=== PATIENT | female | born 1975 | race Caucasian/White ===

== ENCOUNTER 2018-01-27 07:32 | Day surgery (SDC) | payer OTHER, SELFPAY ==
--- NOTE | 2018-01-27 | GASB_PTH ---
PATIENT: AMRITA PEREA LOC: EN U#:[id number] AGE/SX: 42/F ROOM: RE01/27/[address]: Dr. Phillip Joseph MD : 1975 BED: DIS: 01/27/2018 SPEC #: [id number] RECD: 01/27/18 11:06 STATUS: DRARYN CHANEL #: [id number] GAYLA: 01/27/18 00:[address]: Phillip Joseph DEPT: SURGICAL PATHOLOGY RECD BY: Terell Worthington ENTERED: 01/27/18 11:06 SP TYPE: Gastric Bx OTHR DR: Dr. Hermilo Lu DO Tissues: A - Gastric mucous membrane B - Esophageal mucous membrane Procedures: Special Stain Group II Surgery Specimen Level IV Alcian Blue/PAS (control) HEADER OPERATION: EGD ([facility] [place]) PRE-OP DIAGNOSIS: Epigastric abdomen pain, GERD, esophagitis TISSUE SUBMITTED: A - Antrum biopsy for H. pylori and path, B - Biopsy of esophagus MICROSCOPIC DIAGNOSIS A. Antrum, biopsy: Mild gastritis. See microscopic description and comment. B. Esophagus, biopsy: Fragments of gastroesophageal mucosa with chronic inflammation. Intestinal metaplasia (goblet cell metaplasia) is not identified. See comment. SJ:rg 01/29/18 COMMENT A. The results of immunohistochemistry for Helicobacter pylori will be reported separately ([id number]). B. Alcian blue/PAS stain with matched control is used in the evaluation of the specimen. MICROSCOPIC DESCRIPTION Slides are reviewed. A. The specimen shows fragments of gastric mucosa with chronic inflammatory cell infiltrates in the lamina propria consisting of lymphocytes and plasma cells, consistent with mild chronic gastritis. GROSS DESCRIPTION A - Received in fixative is one container labeled with the patient's name and designated antrum biopsy. The specimen consists of one irregular fragment of light henley soft tissue that measures 0.5 x 0.4 x 0.1 cm. The specimen is totally submitted in one cassette. B - Received in fixative is one container labeled with the patient's name and designated biopsy of esophagus. The specimen consists of multiple irregular fragments of light henley soft tissue that in aggregate measure 1 x 0.5 x 0.1 cm. The specimen is totally submitted in one cassette. / EMMY:kanwal 01/27/18 TC:3 CPT: 64947 x2, 64320
[2018-01-27 07:51] VITALS: BP 138/83; PULSE 71; RESP 16; TEMP 36.9; O2SAT 100; BMI 49.8
[2018-01-27 07:55] LABS: Internal QC Validated? YES +Cl - CLEAR BKGD; Pregnancy, Urine Negative Negative
[2018-01-27 08:58] VITALS: BP 113/63; BP 138/83; PULSE 82; RESP 16; TEMP 36.6; O2SAT 99
--- NOTE | 2018-01-27 09:00 | OP.ENDO_ITS ---
Patient Name: Nenita Ennis Procedure Date: 01/27/2018 8:31 AM Date of : 1975 Age: 42 Procedure: Upper GI endoscopy Indications: Dysphagia Providers: Phillip Joseph MD Referring MD: Phillip Joseph MD Medicines: See the Anesthesia note for documentation of the administered medications Patient Profile: This is a 42 year old female. Refer to note in patient chart for documentation of history and physical. Complications: No immediate complications. Procedure: Pre-Anesthesia Assessment: - Prior to the procedure, a History and Physical was performed, and patient medications and allergies were reviewed. The patient's tolerance of previous anesthesia was also reviewed. The risks and benefits of the procedure and the sedation options and risks were discussed with the patient. All questions were answered, and informed consent was obtained. Prior Anticoagulants: The patient has taken no previous anticoagulant or antiplatelet agents. ASA Grade Assessment: III - A patient with severe systemic disease. After reviewing the risks and benefits, the patient was deemed in satisfactory condition to undergo the procedure. After obtaining informed consent, the endoscope was passed under direct vision. Throughout the procedure, the patient's blood pressure, pulse, and oxygen saturations were monitored continuously. The gastroscope was introduced through the mouth, and advanced to the second part of duodenum. The upper GI endoscopy was accomplished without difficulty. The patient tolerated the procedure well. Scope In: 8:48:39 AM Scope Out: 8:53:42 AM Total Procedure Duration Time 0 hours 5 minutes 3 seconds Findings: LA Grade A (one or more mucosal breaks less than 5 mm, not extending between tops of 2 mucosal folds) esophagitis with no bleeding was found 38 cm from the incisors. Biopsies were taken with a cold forceps for histology. Verification of patient identification for the specimen was done. Estimated blood loss was minimal. Localized minimal inflammation characterized by erythema was found in the gastric antrum. Biopsies were taken with a cold forceps for Helicobacter pylori testing. The Z-line was irregular and was found 38 cm from the incisors. The examined duodenum was normal. No biopsies or other specimens were collected for this exam. Impression: - LA Grade A reflux esophagitis. Rule out Joyce's esophagus. Biopsied. - Gastritis. Biopsied. - Z-line irregular, 38 cm from the incisors. - Normal examined duodenum. No specimens collected. Recommendation: - Discharge patient to home. - Resume previous diet. - Continue present medications. - Await pathology results. - Perform routine esophageal manometry at appointment to be scheduled. - Perform ambulatory pH monitoring at appointment to be scheduled. - Return to my office in 1 week. Procedure Code(s): --- Professional --- 51454, Esophagogastroduodenoscopy, flexible, transoral; with biopsy, single or multiple Diagnosis Code(s): --- Professional --- K21.0, Gastro-esophageal reflux disease with esophagitis K29.70, Gastritis, unspecified, without bleeding K22.8, Other specified diseases of esophagus R13.10, Dysphagia, unspecified CPT copyright 2017 [employer]. All rights reserved. The codes documented in this report are preliminary and upon computer art instructor review may be revised to meet current compliance requirements. MD Phillip Smiley MD 01/27/2018 8:59:13 AM This report has been signed electronically. Number of Addenda: 0 Note Initiated On: 01/27/2018 8:31 AM
--- NOTE | 2018-01-27 09:00 | IMM_PTH ---
PATIENT: AMRITA PEREA LOC: EN U#:[id number] AGE/SX: 42/F ROOM: RE01/27/[address]: Dr. Phillip Joseph MD : 1975 BED: DIS: 01/27/2018 SPEC #: [id number] RECD: 01/27/18 14:23 STATUS: DARRYN REPooja #: [id number] GAYLA: 01/27/18 09:[address]: Phillip Joseph DEPT: IMMUNOHISTOCHEMISTRY RECD BY: Nadya Ramsey ENTERED: 01/27/18 14:24 SP TYPE: IMMUNO OTHR DR: Dr. Hermilo Lu DO Tissues: A - Stomach, NOS Procedures: H Pylori (initial) PHYSICIAN & INSTITUTION [place] [id number] SPECIMEN INFORMATION: Tissue Source: A - Antrum biopsy Clinical Info: Epigastric pain, GERD, esophagitis Specimen Number: [id number] CPT code: 94398 METHODOLOGY: Deparaffinized sections of prefer/formalin-fixed tissue or PAP/DQ stained slides are incubated with monoclonal/polyclonal antibodies/oligonucleotide probes. Localization is made via biotin free immunoperoxidase method. Appropriate controls are performed and reacted as expected. Results on target cell population are indicated in the following table: RESULTS: ANTIBODY / CLONE RESULT Block A H Pylori (polyclonal) negative These tests were developed and their performance characteristics determined by [facility]. They may not have been cleared or approved by the [place].S. Food and Drug Administration. The FDA has determined that such clearance or approval is not necessary. INTERPRETATION: A. Antrum, biopsy: Negative for Helicobacter pylori organisms. SJ:kanwal 01/29/18
[2018-01-27 09:05] VITALS: BP 123/64; BP 138/83; PULSE 70; RESP 16; O2SAT 98
[2018-01-27 09:10] VITALS: BP 115/55; BP 138/83; PULSE 62; RESP 16; O2SAT 100
[2018-01-27 09:15] VITALS: BP 138/83; BP 91/48; PULSE 60; RESP 16; TEMP 36.6; O2SAT 100
[2018-01-27 09:32] VITALS: BP 138/83
== END 2018-01-27 09:42 | disposition home or self-care (01) ==
LOC: EN 07:32 → AC 07:33
PROVIDERS: Anesthesiology; Family Provider Student in an Organized Health Care Education/Training Program; PCP Student in an Organized Health Care Education/Training Program; Referring Provider Surgery; Visit Provider Surgery
PROC: 0DJ08ZZ Inspection of Upper Intestinal Tract, Via Natural or Artificial Opening Endoscopic (ICD-10-PCS; CPT 43235; principal; 2018-01-27 08:55)
DX: K29.70 Gastritis, unspecified, without bleeding (principal); K21.0 Gastro-esophageal reflux disease with esophagitis; K22.8 Other specified diseases of esophagus; F41.9 Anxiety disorder, unspecified; F32.9 Major depressive disorder, single episode, unspecified; M54.9 Dorsalgia, unspecified; G89.29 Other chronic pain; K58.9 Irritable bowel syndrome, unspecified; Z87.19 Personal history of other diseases of the digestive system; Z86.2 Personal history of diseases of the blood and blood-forming organs and certain disorders involving the immune mechanism; Z90.49 Acquired absence of other specified parts of digestive tract; Z79.899 Other long term (current) drug therapy
CPT/HCPCS: 43239; 81025; 88305; 88313; 88342; J7120

== ENCOUNTER 2018-02-18 09:41 | Day surgery (SDC) | payer OTHER, SELFPAY ==
[2018-02-18 09:55] VITALS: BP 146/86; PULSE 89; RESP 16; TEMP 37; O2SAT 97
== END 2018-02-18 10:20 | disposition home or self-care (01) ==
PROVIDERS: Family Provider Student in an Organized Health Care Education/Training Program; PCP Student in an Organized Health Care Education/Training Program; Referring Provider Surgery; Visit Provider Surgery
PROC: F00ZJWZ Instrumental Swallowing and Oral Function Assessment using Swallowing Equipment (ICD-10-PCS; CPT 43235; principal; 2018-02-18 10:00)
DX: R13.10 Dysphagia, unspecified (principal); R11.10 Vomiting, unspecified
CPT/HCPCS: 91010; 91013

== ENCOUNTER 2018-03-08 05:53 | Day surgery (SDC) | payer OTHER, SELFPAY ==
[2018-03-08 06:12] LABS: Internal QC Validated? YES +Cl - CLEAR BKGD; Pregnancy, Urine Negative Negative
[2018-03-08 06:13] VITALS: BP 122/72; PULSE 73; RESP 16; TEMP 36.7; O2SAT 98; BMI 49.6
[2018-03-08 07:14] VITALS: BP 122/72; BP 124/95; PULSE 83; RESP 15; TEMP 36.3; O2SAT 97
[2018-03-08 07:20] VITALS: BP 122/72; BP 129/70; PULSE 74; RESP 16; O2SAT 95
[2018-03-08 07:25] VITALS: BP 118/57; BP 122/72; PULSE 76; RESP 16; O2SAT 96
[2018-03-08 07:31] VITALS: BP 122/72; BP 138/74; PULSE 67; RESP 16; TEMP 37; O2SAT 97
--- NOTE | 2018-03-08 07:45 | OP.ENDO_ITS ---
Patient Name: Nenita Ennis Procedure Date: 03/08/2018 6:35 AM Date of : 1975 Age: 42 Procedure: Upper GI endoscopy Indications: Epigastric abdominal pain, Gastro-esophageal reflux disease Providers: Phillip Joseph MD Referring MD: Phillip Joseph MD Medicines: See the Anesthesia note for documentation of the administered medications Patient Profile: This is a 42 year old female. Refer to note in patient chart for documentation of history and physical. Complications: No immediate complications. Procedure: Pre-Anesthesia Assessment: - Prior to the procedure, a History and Physical was performed, and patient medications and allergies were reviewed. The patient's tolerance of previous anesthesia was also reviewed. The risks and benefits of the procedure and the sedation options and risks were discussed with the patient. All questions were answered, and informed consent was obtained. Prior Anticoagulants: The patient has taken no previous anticoagulant or antiplatelet agents. ASA Grade Assessment: III - A patient with severe systemic disease. After reviewing the risks and benefits, the patient was deemed in satisfactory condition to undergo the procedure. After obtaining informed consent, the endoscope was passed under direct vision. Throughout the procedure, the patient's blood pressure, pulse, and oxygen saturations were monitored continuously. The gastroscope was introduced through the mouth, and advanced to the second part of duodenum. The upper GI endoscopy was accomplished without difficulty. The patient tolerated the procedure well. Scope In: 7:05:57 AM Scope Out: 7:10:40 AM Total Procedure Duration Time 0 hours 4 minutes 43 seconds Findings: A small hiatal hernia was present. The Z-line was variable and was found 38 cm from the incisors. The UMANA capsule with delivery system was introduced through the mouth and advanced into the esophagus, such that the UMANA pH capsule was positioned 32 cm from the incisors, which was 6 cm proximal to the GE junction. The UMANA pH capsule was then deployed and attached to the esophageal mucosa. The delivery system was then withdrawn. Endoscopy was utilized for probe placement and diagnostic evaluation. The entire examined stomach was normal. No biopsies or other specimens were collected for this exam. The examined duodenum was normal. No biopsies or other specimens were collected for this exam. Impression: - Small hiatal hernia. - Z-line variable, 38 cm from the incisors. - Normal stomach. No specimens collected. - Normal examined duodenum. No specimens collected. - The UMANA pH capsule was deployed. Recommendation: - Discharge patient to home. - Resume previous diet. - Continue present medications. - Return to my office in 1 week. Procedure Code(s): --- Professional --- 87619, Esophagogastroduodenoscopy, flexible, transoral; diagnostic, including collection of specimen(s) by brushing or washing, when performed (separate procedure) Diagnosis Code(s): --- Professional --- K44.9, Diaphragmatic hernia without obstruction or gangrene K22.8, Other specified diseases of esophagus R10.13, Epigastric pain K21.9, Gastro-esophageal reflux disease without esophagitis CPT copyright 2017 [employer]. All rights reserved. The codes documented in this report are preliminary and upon lawn care professional review may be revised to meet current compliance requirements. MD Phillip Smiley MD 03/08/2018 7:44:01 AM This report has been signed electronically. Number of Addenda: 0 Note Initiated On: 03/08/2018 6:35 AM
[2018-03-08 08:19] VITALS: BP 122/72
== END 2018-03-08 08:20 | disposition home or self-care (01) ==
LOC: EN 05:53 → AC 05:54
PROVIDERS: Anesthesiology; Family Provider Student in an Organized Health Care Education/Training Program; PCP Student in an Organized Health Care Education/Training Program; Referring Provider Surgery; Visit Provider Surgery
PROC: 0DJ08ZZ Inspection of Upper Intestinal Tract, Via Natural or Artificial Opening Endoscopic (ICD-10-PCS; CPT 43235; principal; 2018-03-08 06:30)
DX: K21.9 Gastro-esophageal reflux disease without esophagitis (principal); K44.9 Diaphragmatic hernia without obstruction or gangrene; K22.8 Other specified diseases of esophagus; F41.9 Anxiety disorder, unspecified; F32.9 Major depressive disorder, single episode, unspecified; Z87.19 Personal history of other diseases of the digestive system; Z86.2 Personal history of diseases of the blood and blood-forming organs and certain disorders involving the immune mechanism; Z79.899 Other long term (current) drug therapy
CPT/HCPCS: 43235; 91035; 81025; J7120